=== PATIENT | male | born 1970 | race Caucasian/White ===

== ENCOUNTER 2016-07-18 13:57 | Emergency (ER) ==
[2016-07-18] MEDS ORDERED: NS 1,000 ML IV PRN (14:17)
--- NOTE | 2016-07-18 15:01 | Diag Imaging Result Document ---
PROCEDURE NAME: HEAD W/O CONTRAST - 07/18/2016 CT HEAD WITHOUT CONTRAST: COMPARISON: MRI dated 06/21/[address] head dated 06/13/2016. FINDINGS: The known metastatic mass in the posterior left parietal lobe is again identified. As compared to the previous CT it is approximately stable or marginally larger measuring up to 2.1 x 1.2 cm axially. However, there is significantly more vasogenic edema involving the left hemisphere as compared to the previous CT and the previous MRI with edema involving the left parietal lobe, left frontal lobe, left occipital lobe, and a small part of the left temporal lobe. There is effacement of the sulci that has worsened since both prior studies. There is worsened effacement of the left lateral ventricle. There is now approximately 5.2 mm of rightward midline shift. No definite new masses are identified given the limitations of an unenhanced study. There is no evidence of acute intracranial hemorrhage. There is a stable chronic defect at the medial orbital wall on the left as well as left paranasal sinus mucosal thickening. Surrounding soft tissues and bony structures are unremarkable, otherwise. IMPRESSION: Known posterior parietal metastatic lesion in the left hemisphere as described that is stable to marginally larger as compared to the previous CT. However, there is significantly worse vasogenic edema with worsening mass effect as compared to the previous CT as well as the previous MRI.
--- NOTE | 2016-07-18 15:21 | Diag Imaging Result Document ---
PROCEDURE NAME: CHEST-PORTABLE - 07/18/2016 PORTABLE CHEST X-RAY: COMPARISON: 04/11/2015. FINDINGS: The lungs are normally expanded and clear. Heart size and mediastinal contours are normal. No pneumothorax or pleural effusion. IMPRESSION: Negative exam.
--- NOTE | 2016-07-18 15:22 | PROVIDER DOCUMENTATION ---
HPI-Neurological Disorder - General Stated Complaint: R SIDED WEAKNESS Time Seen by Provider: 07/18/16 14:16 Source: patient, family Allergies/Adverse Reactions: Patient Allergies Allergy/AdvReac Type Severity Reaction Status Date / Time No Known Allergies Allergy Verified 07/18/16 15:39 Home Medications: Hydrocodone/Acetaminophen [Watts 10-325 Tablet] 1 each PO ORDERED 05/19/15 Alectinib HCl [Alecensa] 150 mg PO HS 07/18/16 - History of Present Illness-Neuro Nature of Presenting Problem: Pt is a 45 yom that is being followed by and is being treated with oral chemo Alecensa since November 2015 and taking Watts presents to er today with cc of right sided weakness. Pt family at bedside reports pt was driving today and started having right sided arm and leg weakness to the point he was unable to get out of the car without assistance and became confused. Family reports pt has lung cancer,brain cancer and pancreatic cancer. CT done last week which showed lesion on brain last week and wanted to do one radiation this sunday. Pt reports having headaches past 2-3 weeks. Headache Location: reports: global Severity: reports: moderate Onset/Duration: reports: this morning (10) Character of Altered Mental Status: reports: confused Character of Deficits: reports: new weakness, decreased ability to stand, decreased ability to walk New weakness or altered sensation location:: reports: RUE, RLE Cognitive Baseline: alert but confused Gait Baseline: walks without assistance Similar Symptoms Previously?: No Recently seen or treated by another doctor?: Yes Review of Systems - Adult - REVIEW OF SYSTEMS - ADULT Constitutional: denies: chills, fever, fatique Eyes: reports: no symptoms reported Ears, Nose, Mouth & Throat: reports: no symptoms reported Cardiovascular: denies: chest pain, irregular heart rate, orthopnea Respiratory: reports: no symptoms reported Gastrointestinal: denies: abdominal pain, diarrhea, nausea, vomiting Genitourinary: reports: no symptoms reported Musculoskeletal: reports: no symptoms reported Integumentary: reports: no symptoms reported Neurological: reports: see HPI, headache/migraines, other (right sided weakness) . denies: numbness, paresthesia, seizure, slurred speech, syncope Psychiatric: reports: no symptoms reported Endocrine: reports: no symptoms reported Hematologic/Lymphatic: reports: no symptoms reported Allergic/Immunologic: reports: no symptoms reported All Other Systems: Reviewed and Negative Past History - Adult - PAST MEDICAL HISTORY-ADULT Review of Records: reports: Nursing Assessment Review, Medications Reviewed Cardiovascular: reports: blood clots Respiratory: reports: cancer (lung primary with mets to brain, kidney), other ( pneumothorax) Other Conditions: reports: other cancer (mets to brain, pancreas, left kidney) - PRIOR SURGERIES/PROCEDURES Surgical/Procedure History: reports: appendectomy, indwelling device (bronchial stent due to cancer and has been removed), orthopedic (extremity) (left leg), other (left lung biopsy. left chest ) - IMMUNIZATION STATUS Childhood Immunizations: See Nurse Assessment Flu Vaccine: See Nurse Assessment - SOCIAL HISTORY Smoking: denies Substance Use: alcohol Alcohol Use Frequency: once a week Physical Exam- Neurological - Physical Exam-Neuro Initial Vital Signs Reviewed: Yes General Appearance: alert, no apparent distress. 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 negative: normal speech, facial droop, facial paresthesias, facial weakness Coordination/Gait: normal finger to nose Motor/Sensory: no motor deficit, sensory deficit (right arm) Neurologic: patient services assistant II-XII nml as tested, grossly normal Integumentary: normal color, normal turgor, warm/dry Psych/Mental Status: AL, normal mood/affect, normal thought content, normal thought process, oriented x 3 - Glascow Coma Scale Best Eye Response: (4) open spontaneously Best Verbal Response: (4) confused conversation Best Motor Response: (6) obeys commands Total Glascow Score: 14 Progress - PLAN OF CARE/RESULTS Progress/Plan/Lab Results: Orders Category Date Time Status Cardiac Monitoring DIRECTED Care 07/18/16 14:17 Active Finger Stick Blood Sugar (ED) DIRECTED Care 07/18/16 14:17 Active Misc. NRSG Communication Order DIRECTED Care 07/18/16 14:17 Active Oxygen Therapy- ED Nursing DIRECTED Care 07/18/16 14:17 Active Saline Loc NOW Care 07/18/16 14:17 Active CHEST-PORTABLE [RAD] Stat Exams 07/18/16 14:17 Draft HEAD W/O CONTRAST [CT] Stat Exams 07/18/16 14:17 Draft CBC WITH ELECTRONIC DIFF [HEME] Stat Lab 07/18/16 14:17 Uncollected COMPREHENSIVE METABOLIC PANEL [CHEM] Stat Lab 07/18/16 14:17 Uncollected PROTIME WITH INR [COAG] Stat Lab 07/18/16 14:17 Uncollected PTT [COAG] Stat Lab 07/18/16 14:17 Uncollected TROPONIN T Stat Lab 07/18/16 14:17 Uncollected URINALYSIS W/POSS RFLX CULT [URINALYSIS] Stat Lab 07/18/16 14:17 Uncollected URINE DRUG SCREEN Stat Lab 07/18/16 14:17 Uncollected 0.9% Sodium Chloride Inj [Ns] 1,000 ml Med 07/18/16 14:17 Active IV Per Protocol EKG [EKG] Stat Ther 07/18/16 14:17 Ordered Laboratory Tests 07/18/16 07/18/16 07/18/16 15:00 15:00 15:33 WBC 7.76 RBC 4.37 L Hgb 14.3 Hct 41.9 L MCV 95.9 MCH 32.7 H MCHC 34.1 RDW Std Deviation 14.3 Plt Count 267 MPV 9.7 Immature Gran % (Auto) 0.0 Neut % (Auto) 72.5 Lymph % (Auto) 13.9 L Osborne % (Auto) 11.9 H Eos % (Auto) 1.3 Baso % (Auto) 0.4 Immature Gran # (Auto) 0.00 Neut # (Auto) 5.63 Lymph # (Auto) 1.08 L Osborne # (Auto) 0.92 H Eos # (Auto) 0.10 Baso # (Auto) 0.03 Sodium 137 Potassium 3.9 Chloride 101 Carbon Dioxide 22 L Anion Gap 14 BUN 15 Creatinine 0.9 Estimated GFR/1.73 m2 > 60 BUN/Creatinine Ratio 17 Glucose 93 Calculated Osmolality 274 Calcium 8.8 Total Bilirubin 0.38 AST 19 ALT 12 Alkaline Phosphatase 59 Total Protein 7.3 Albumin 4.0 Globulin 3.3 Albumin/Globulin Ratio 1.2 Urine Source CATH Urine Color YELLOW Urine Turbidity CLEAR Urine pH 7.0 Ur Specific Heaters 1.009 Urine Protein NEGATIVE Ur Glucose (Stick) NEGATIVE Ur Ketones (Stick) NEGATIVE Urine Blood NEGATIVE Urine Nitrite NEGATIVE Urine Bilirubin NEGATIVE Urobilinogen Dipstick NORMAL Urine Leukocytes NEGATIVE Urine Opiates Screen Ur Oxycodone Screen Ur Methadone, Qual Ur Barbiturates Screen Ur Phencyclidine Scrn Ur Amphetamines Screen U Benzodiazepines Scrn Urine Cocaine Screen U Cannabinoids Screen 07/18/16 15:33 WBC RBC Hgb Hct MCV MCH MCHC RDW Std Deviation Plt Count MPV Immature Gran % (Auto) Neut % (Auto) Lymph % (Auto) Osborne % (Auto) Eos % (Auto) Baso % (Auto) Immature Gran # (Auto) Neut # (Auto) Lymph # (Auto) Osborne # (Auto) Eos # (Auto) Baso # (Auto) Sodium Potassium Chloride Carbon Dioxide Anion Gap BUN Creatinine Estimated GFR/1.73 m2 BUN/Creatinine Ratio Glucose Calculated Osmolality Calcium Total Bilirubin AST ALT Alkaline Phosphatase Total Protein Albumin Globulin Albumin/Globulin Ratio Urine Source Urine Color Urine Turbidity Urine pH Ur Specific Heaters Urine Protein Ur Glucose (Stick) Ur Ketones (Stick) Urine Blood Urine Nitrite Urine Bilirubin Urobilinogen Dipstick Urine Leukocytes Urine Opiates Screen NONE DETECTED Ur Oxycodone Screen NONE DETECTED Ur Methadone, Qual NONE DETECTED Ur Barbiturates Screen NONE DETECTED Ur Phencyclidine Scrn NONE DETECTED Ur Amphetamines Screen NONE DETECTED U Benzodiazepines Scrn NONE DETECTED Urine Cocaine Screen NONE DETECTED U Cannabinoids Screen NONE DETECTED Vital Signs - 24 hr 07/18/16 15:28 Temperature 97.4 F L Pulse Rate 72 Respiratory 20 Rate Blood Pressure 119/90 O2 Sat by Pulse 100 Oximetry 1624 [facility] Laboratory Tests 07/18/16 07/18/16 07/18/16 15:00 15:00 15:00 WBC 7.76 RBC 4.37 L Hgb 14.3 Hct 41.9 L MCV 95.9 MCH 32.7 H MCHC 34.1 RDW Std Deviation 14.3 Plt Count 267 MPV 9.7 Immature Gran % (Auto) 0.0 Neut % (Auto) 72.5 Lymph % (Auto) 13.9 L Osborne % (Auto) 11.9 H Eos % (Auto) 1.3 Baso % (Auto) 0.4 Immature Gran # (Auto) 0.00 Neut # (Auto) 5.63 Lymph # (Auto) 1.08 L Osborne # (Auto) 0.92 H Eos # (Auto) 0.10 Baso # (Auto) 0.03 PT 10.0 INR 0.94 PTT (Actin FS) 26.0 Sodium 137 Potassium 3.9 Chloride 101 Carbon Dioxide 22 L Anion Gap 14 BUN 15 Creatinine 0.9 Estimated GFR/1.73 m2 > 60 BUN/Creatinine Ratio 17 Glucose 93 Calculated Osmolality 274 Calcium 8.8 Total Bilirubin 0.38 AST 19 ALT 12 Alkaline Phosphatase 59 Troponin T Total Protein 7.3 Albumin 4.0 Globulin 3.3 Albumin/Globulin Ratio 1.2 Urine Source Urine Color Urine Turbidity Urine pH Ur Specific Heaters Urine Protein Ur Glucose (Stick) Ur Ketones (Stick) Urine Blood Urine Nitrite Urine Bilirubin Urobilinogen Dipstick Urine Leukocytes Urine WBC (Auto) Urine RBC (Auto) U Epithel Cells (Auto) Urine Bacteria (Auto) Urine Opiates Screen Ur Oxycodone Screen Ur Methadone, Qual Ur Barbiturates Screen Ur Phencyclidine Scrn Ur Amphetamines Screen U Benzodiazepines Scrn Urine Cocaine Screen U Cannabinoids Screen 07/18/16 07/18/16 07/18/16 15:00 15:33 15:33 WBC RBC Hgb Hct MCV MCH MCHC RDW Std Deviation Plt Count MPV Immature Gran % (Auto) Neut % (Auto) Lymph % (Auto) Osborne % (Auto) Eos % (Auto) Baso % (Auto) Immature Gran # (Auto) Neut # (Auto) Lymph # (Auto) Osborne # (Auto) Eos # (Auto) Baso # (Auto) PT INR PTT (Actin FS) Sodium Potassium Chloride Carbon Dioxide Anion Gap BUN Creatinine Estimated GFR/1.73 m2 BUN/Creatinine Ratio Glucose Calculated Osmolality Calcium Total Bilirubin AST ALT Alkaline Phosphatase Troponin T < 0.010 Total Protein Albumin Globulin Albumin/Globulin Ratio Urine Source CATH Urine Color YELLOW Urine Turbidity CLEAR Urine pH 7.0 Ur Specific Heaters 1.009 Urine Protein NEGATIVE Ur Glucose (Stick) NEGATIVE Ur Ketones (Stick) NEGATIVE Urine Blood NEGATIVE Urine Nitrite NEGATIVE Urine Bilirubin NEGATIVE Urobilinogen Dipstick NORMAL Urine Leukocytes NEGATIVE Urine WBC (Auto) <10 Urine RBC (Auto) <10 U Epithel Cells (Auto) <10 Urine Bacteria (Auto) NEGATIVE Urine Opiates Screen NONE DETECTED Ur Oxycodone Screen NONE DETECTED Ur Methadone, Qual NONE DETECTED Ur Barbiturates Screen NONE DETECTED Ur Phencyclidine Scrn NONE DETECTED Ur Amphetamines Screen NONE DETECTED U Benzodiazepines Scrn NONE DETECTED Urine Cocaine Screen NONE DETECTED U Cannabinoids Screen NONE DETECTED - EKG 1 Time of EKG reading by physician:: 15:09 EKG Read and Signed by:: Edouard Reynolds Jr EKG Interpretation (*Must complete 3 of following elements*): Normal Rate: 61 Rhythm: nsr [place]: normal QRS: normal PA Interval: normal ST Wave: normal - XRAY 1 XRAY: Bilateral XRAY Study: Chest Impression: Normal XRAY Interpretation: nad - CT/MRI 1 CT Study: Head Impression: Abnormal (Known posterior parietal metastatic lesion in the left hemisphere as described that is stable to marginally larger as compared to the previous Ct.. However there is significantly worese vasogenic edema with worsening mass effects as compared to the previous ct as well as the previous MRI.) - CONSULTS/PCP/HOSPITALIST Notification #1 *Consult/PCP/Hospitalist*: Time Discussed: 16:58 (Transfer to [facility]) Departure - Departure Time of Disposition Order: 15:47 DIAGNOSIS: Metastatic cancer to brain, Vasogenic brain edema, Neoplasm causing mass effect on adjacent structures Disposition: [facility] 02 Certified Medical Emergency: Emergent Condition: Stable Attestation - Scribe Verification/Attestation Scribe:: Benigno Costa Acting as Scribe for:: Edouard Reynolds Jr Scribe documention review:: This chart was documented by a scribe and accurately reflects the service the provider performed and the decisions made by the provider.
--- NOTE | 2016-07-18 15:44 | EKG Report ---
Test Performed on : 07/18/2016 3:09:25 PM Test Reason : Stroke like symptoms Blood Pressure : / mmHG Vent. Rate : 061 BPM Atrial Rate : 061 BPM P-R Int : 146 ms QRS Dur : 090 ms QT Int : 410 ms P-R-T Axes : 068 044 048 degrees QTc Int : 412 ms Normal sinus rhythm. Normal ECG When compared with ECG of 18-JUL-2016 15:08, (Unconfirmed) No significant change was found Unconfirmed Result
[2016-07-18 15:48] LABS: URINE CULTURE NEEDED? NO; URINE MICRO REVIEW NEEDED? NO; URINE SOURCE CATH
[2016-07-18 15:48] LABS: MANUAL DIFF NEEDED? NO
[2016-07-18 15:52] LABS: BASO% 0.4 % (0.0-0.8); EOS% 1.3 % (0.0-10.0); HEMATOCRIT 41.9 % (42.0-52.0); HEMOGLOBIN 14.3 g/dL (14.0-18.0); LYMPH# 1.08 X1000 (1.2-3.4); LYMPH% 13.9 % (20.5-51.1); MCH 32.7 PG (27-31); MCHC 34.1 g/dL (33-37); MCV 95.9 FL (81-99); MONO# 0.92 X1000 (0.11-0.59); MONO% 11.9 % (1.7-9.3); MPV 9.7 FL (7.4-10.4); NEUT% 72.5 % (42.2-75.2); PLT 267 X1000 (130-400); RBC 4.37 XMIL (4.7-6.1)
[2016-07-18 16:06] LABS: UR AMPHETAMINES QUAL NONE DETECTED (NONE DETECT); UR BARBITUATES QUAL NONE DETECTED (NONE DETECT); UR BENZODIAZEPIN QUAL NONE DETECTED (NONE DETECT); UR CANNABINOIDS QUAL NONE DETECTED (NONE DETECT); UR COCAINE QUAL NONE DETECTED (NONE DETECT); UR METHADONE QUAL NONE DETECTED (NONE DETECT); UR OPIATES QUAL NONE DETECTED (NONE DETECT); UR OXYCODONE QUAL NONE DETECTED (NONE DETECT); UR PCP QUAL NONE DETECTED (NONE DETECT)
[2016-07-18 16:09] LABS: AGAP 14; ALKALINE PHOSPHATASE 59 U/L (32-122); BUN 15 mg/dL (8-22); CALCIUM 8.8 mg/dL (8.8-10.2); CHLORIDE 101 mmol/L (98-107); COSMO 274; GOT 19 U/L (10-34); GPT 12 U/L (10-44); POTASSIUM 3.9 mmol/L (3.5-5.1); SODIUM 137 mmol/L (136-145); TCO2 22 mmol/L (25-35); TOTAL BILIRUBIN 0.38 mg/dL (0.20-1.00); TOTAL PROTEIN 7.3 g/dL (6.3-8.3)
[2016-07-18 16:24] LABS: BILIRUBIN URINE NEGATIVE (NEGATIVE); BLOOD URINE NEGATIVE (NEGATIVE); COLOR YELLOW; GLUCOSE URINE NEGATIVE (NEGATIVE); LEUKOCYTES URINE NEGATIVE (NEGATIVE); NITRITE URINE NEGATIVE (NEGATIVE); PROTEIN URINE NEGATIVE (NEGATIVE); SP GRAVITY URINE 1.009; TURBIDITY URINE CLEAR (CLEAR); UROBILINOGEN URINE NORMAL (NORMAL)
[2016-07-18 16:25] LABS: UR EPITHELIAL CELLS <10 /HPF (<10); URINE BACTERIA NEGATIVE /HPF; URINE RBC <10 /HPF (<10); URINE WBC <10 /HPF (<10)
[2016-07-18 16:51] LABS: INR 0.94
[2016-07-18 17:08] VITALS: BP 147/83
== END 2016-07-18 17:23 | disposition short-term general hospital (02) ==
LOC: EDUNIT# → EDBD → ED 13:57
DX: G93.6 Cerebral edema (principal); C79.31 Secondary malignant neoplasm of brain; R53.1 Weakness; C78.89 Secondary malignant neoplasm of other digestive organs; C79.00 Secondary malignant neoplasm of unspecified kidney and renal pelvis; Z85.118 Personal history of other malignant neoplasm of bronchus and lung; R51 Headache; R41.0 Disorientation, unspecified; Z86.718 Personal history of other venous thrombosis and embolism; Z79.899 Other long term (current) drug therapy
CPT/HCPCS: 70450; 71010; 80053; 81001; 82948; 84484; 85025; 85610; 85730; 93005; G0480